=== PATIENT | female | born 1980 | race Caucasian/White ===

== ENCOUNTER 2021-03-07 21:07 | Emergency (ER) | payer OTHER | END 2021-03-08 01:01 | disposition home or self-care (01) | LOC: ER1 21:07 | DX: G43.909 Migraine, unspecified, not intractable, without status migrainosus (principal); F17.210 Nicotine dependence, cigarettes, uncomplicated | CPT/HCPCS: 96374; 96375; 99283; J1100; J1200; J1885; J2405 ==